=== PATIENT | male | born 1965 | race Caucasian/White ===

== ENCOUNTER 2016-10-18 08:00 | Day surgery (SDC) | payer OTHER ==
[~2016-10-18] VITALS: Ht 182.9 cm; Wt 95.2 kg
[2016-10-18] MEDS ORDERED: COQ1200C PO (08:36)
[2016-10-18] MEDS ORDERED: ASPI1TAB69 PO (08:36)
[2016-10-18] MEDS ORDERED: NITR1SUB3 SL (08:36)
[2016-10-18 08:37] VITALS: BP 141/87; PULSE 68; RESP 18; TEMP 98; O2SAT 95
[2016-10-18] MEDS ORDERED: MIDAZOLAM HCL 2 MG/2 ML VIAL ONE (11:11)
[2016-10-18] MEDS ORDERED: HEPARIN-NS/PF INJ 500 ML ONE (11:11)
[2016-10-18] MEDS ORDERED: HEPARIN SODIUM - IV 10,000 UNITS/10 ML VIAL ONE (11:11)
[2016-10-18] MEDS ORDERED: IOHEXOL 350 MG/ML 100 ML BTL (for Cath Lab) OTHER ONE (11:35)
[2016-10-18] MEDS ORDERED: METO25TA3 PO (12:07)
[2016-10-18] MEDS ORDERED: LIPI40TA PO (12:07)
[2016-10-18] MEDS ORDERED: PLAV75TA29 PO (12:08)
[2016-10-18] MEDS ORDERED: ISOS30TA3 PO (12:17)
[2016-10-18] MEDS ORDERED: ISOSORBIDE MONONITRATE 30 MG TAB PO SCH (12:30)
[2016-10-18] MEDS ORDERED: cloNIDine HCL 0.2 MG TAB PO PRN (14:00)
--- NOTE | 2016-10-18 17:03 | MA ---
cc: JOHN PEACE DATE: 10/18/2016 PROCEDURE PERFORMED 1. Fluoroscopy with interpretation 2. Coronary angiography. 3. Left heart catheterization. METHOD The risks, benefits and alternatives were discussed with the patient. The patient understood and consented to the procedure. The patient was brought into the Catheterization Lab and placed on the catheterization table. The right wrist was prepped and draped in a sterile fashion. The right wrist was anesthetized with 2% lidocaine. The right radial artery was cannulated and a 6-Ukrainian 7-cm sheath was placed without difficulty. LEFT HEART CATHETERIZATION Left ventricular hemodynamics 107/3 mmHg. CORONARY ANGIOGRAPHY The left coronary circulation was selectively engaged with a 6-Ukrainian JL-3.5 catheter. The right coronary circulation was selectively engaged with a 6-[place]rainian JR-5 catheter. CORONARY ANATOMY 1. The left main coronary has a steep angulated origin with about a 40% ostial stenosis, the remainder of the vessel has minor luminal irregularities. 2. The left anterior descending coronary has minor luminal irregularities in the proximal midsegment. 3. The circumflex has an obtuse marginal branch that has minor luminal irregularities and a sub-branch that has about a 50% stenosis but smaller caliber size vessel. 4. The right coronary originates anterior and high on the right coronary cusp. There are some mild luminal irregularities to the midsegment. The posterior descending branch has [id number]-[id number] diffuse disease but smaller caliber size vessel. CONCLUSIONS 1. Isvyt-ev-xhjsrfmr nonobstructive branch vessel coronary disease. 2. Normal left-sided filling pressures. PLAN We will initiate aggressive medical therapy. We will monitor for any post procedural complications. Anticipate discharge today with routine followup. MD SHERRY Edgar/WILBERT /12:06 PM /4:37 PM
[2016-10-18] MEDS ORDERED: METOPROLOL TARTRATE 25 MG TAB PO SCH (21:00)
[2016-10-19] MEDS ORDERED: CLOPIDOGREL 75 MG TAB PO SCH (09:00)
[2016-10-19] MEDS ORDERED: ATORVASTATIN 40 MG TAB PO SCH (09:00)
== END 2016-10-18 15:23 | disposition home or self-care (01) ==
LOC: HDIC 08:00 → HDOC 08:00
PROVIDERS: ATTEND Internal Medicine
DX: I25.10 Atherosclerotic heart disease of native coronary artery without angina pectoris (principal); R94.39 Abnormal result of other cardiovascular function study
CPT/HCPCS: 86850; 86900; 86901; 93454; C1769; C1893; J1644; J2250; J3010; Q9967